=== PATIENT | female | born 1975 | race Caucasian/White ===

== ENCOUNTER → 2016-07-11 | Outpatient (CLI) | payer OTHER | LOC: FIMAGING 13:49 | PROVIDERS: ATTEND Neurological Surgery | DX: G44.51 Hemicrania continua (principal); M99.71 Connective tissue and disc stenosis of intervertebral foramina of cervical region; M50.322 Other cervical disc degeneration at C5-C6 level ==

== ENCOUNTER → 2016-07-20 | Day surgery (SDC) | payer OTHER ==
[~2016-07-20] MED LIST: BUPIVACAINE 0.5% 30 ML SDV ONE; DEPO METHYLPREDNISOLONE 80 MG/ML SDV ONE; LIDOCAINE 1% 30 ML SDV ONE
== END | disposition home or self-care (01) ==
LOC: FIMAGING 13:16
PROVIDERS: ATTEND Radiology Diagnostic Radiology
PROC: 3E0X33Z Introduction of Anti-inflammatory into Cranial Nerves, Percutaneous Approach (ICD-10-PCS; principal; 2016-07-20)
PROC: 3E0X3BZ Introduction of Anesthetic Agent into Cranial Nerves, Percutaneous Approach (ICD-10-PCS; principal; 2016-07-20)
DX: M54.81 Occipital neuralgia (principal)
CPT/HCPCS: J1020

== ENCOUNTER → 2016-07-28 | Outpatient (CLI) | payer OTHER | LOC: FIMAGING 11:06 | DX: Z12.31 Encounter for screening mammogram for malignant neoplasm of breast (principal) | CPT/HCPCS: G0202 ==

== ENCOUNTER 2016-08-17 08:58 | Day surgery (SDC) | payer OTHER ==
[2016-08-17] MEDS ORDERED: ONDANSETRON 4 MG/2 ML VIAL ONE (10:12)
[2016-08-17] MEDS ORDERED: FLUMAZENIL 0.5 MG/5 ML MDV IVP ONE (10:12)
[2016-08-17] MEDS ORDERED: NALOXONE HCL 0.4 MG/ML INJ ONE (10:12)
[2016-08-17] MEDS ORDERED: MIDAZOLAM 2 MG/2 ML VIAL ONE (10:12)
[2016-08-17] MEDS ORDERED: fentaNYL 100 MCG/2 ML INJ ONE (10:14)
[2016-08-17] MEDS ORDERED: BUPIVACAINE 0.5% 30 ML SDV ONE (10:53)
[2016-08-17] MEDS ORDERED: IOPAMIDOL (ISOVUE-M 300) 15 ML VIAL IV ONE (10:54)
[2016-08-17] MEDS ORDERED: DEPO METHYLPREDNISOLONE 80 MG/ML SDV ONE (10:54)
[2016-08-17] MEDS ORDERED: DEPO METHYLPREDNISOLONE 40 MG/ML SDV ONE (10:54)
== END 2016-08-17 11:45 | disposition home or self-care (01) ==
LOC: FIMAGING 08:58
PROVIDERS: ATTEND Radiology Diagnostic Radiology
PROC: B01B1ZZ Fluoroscopy of Spinal Cord using Low Osmolar Contrast (ICD-10-PCS; principal; 2016-08-17 11:00)
PROC: 3E0S3BZ Introduction of Anesthetic Agent into Epidural Space, Percutaneous Approach (ICD-10-PCS; principal; 2016-08-17 11:00)
PROC: 3E0S33Z Introduction of Anti-inflammatory into Epidural Space, Percutaneous Approach (ICD-10-PCS; principal; 2016-08-17 11:00)
DX: M47.892 Other spondylosis, cervical region (principal); G50.0 Trigeminal neuralgia
CPT/HCPCS: J1030; J1040; J2250; J2310; J2405; J3010; Q9967

== ENCOUNTER → 2016-12-08 | Outpatient (CLI) | payer OTHER | LOC: FIMAGING 08:16 | PROVIDERS: ATTEND Student in an Organized Health Care Education/Training Program | DX: O09.521 Supervision of elderly multigravida, first trimester (principal); Z3A.13 13 weeks gestation of pregnancy; O34.11 Maternal care for benign tumor of corpus uteri, first trimester; D25.1 Intramural leiomyoma of uterus; D25.2 Subserosal leiomyoma of uterus ==

== ENCOUNTER → 2017-01-24 | Outpatient (CLI) | payer OTHER | LOC: FIMAGING 10:33 | PROVIDERS: ATTEND Student in an Organized Health Care Education/Training Program | DX: O09.512 Supervision of elderly primigravida, second trimester (principal); O09.812 Supervision of pregnancy resulting from assisted reproductive technology, second trimester; D25.9 Leiomyoma of uterus, unspecified; Z3A.19 19 weeks gestation of pregnancy ==

== ENCOUNTER → 2017-02-28 | Outpatient (CLI) | payer OTHER | LOC: FIMAGING 09:25 | PROVIDERS: ATTEND Student in an Organized Health Care Education/Training Program | DX: O09.512 Supervision of elderly primigravida, second trimester (principal); O09.812 Supervision of pregnancy resulting from assisted reproductive technology, second trimester; O34.12 Maternal care for benign tumor of corpus uteri, second trimester; Z3A.24 24 weeks gestation of pregnancy ==

== ENCOUNTER → 2017-04-11 | Outpatient (CLI) | payer OTHER | LOC: FIMAGING 08:25 | PROVIDERS: ATTEND Student in an Organized Health Care Education/Training Program | DX: O09.523 Supervision of elderly multigravida, third trimester (principal); O09.813 Supervision of pregnancy resulting from assisted reproductive technology, third trimester; O34.13 Maternal care for benign tumor of corpus uteri, third trimester; O99.283 Endocrine, nutritional and metabolic diseases complicating pregnancy, third trimester; O99.619 Diseases of the digestive system complicating pregnancy, unspecified trimester; E03.9 Hypothyroidism, unspecified; K21.9 Gastro-esophageal reflux disease without esophagitis; Z3A.30 30 weeks gestation of pregnancy ==

== ENCOUNTER → 2017-05-25 | Outpatient (CLI) | payer OTHER | LOC: FIMAGING 12:14 | PROVIDERS: ATTEND Student in an Organized Health Care Education/Training Program | DX: O09.523 Supervision of elderly multigravida, third trimester (principal); O09.813 Supervision of pregnancy resulting from assisted reproductive technology, third trimester; O34.13 Maternal care for benign tumor of corpus uteri, third trimester; Z3A.36 36 weeks gestation of pregnancy ==

== ENCOUNTER 2017-06-09 21:57 | Inpatient (IN) | payer OTHER ==
[2017-06-09] MEDS ORDERED: MAGNESIUM SULF 4 GM/WATER 100 ML IV ONE (22:35)
[2017-06-09] MEDS ORDERED: CALCIUM GLUC 10% 1 GM/10 ML VIAL IVP PRN (22:35)
[2017-06-09] MEDS ORDERED: ONDANSETRON 4 MG/2 ML VIAL IVP PRN (22:37)
[2017-06-09 22:48] LABS: PLATELET COUNT 339 10^3/uL (150-400)
[2017-06-09] MEDS: MAGNESIUM SULFATE 20 GM in D5W 500 ML IV SCH (23:47)
--- NOTE | 2017-06-09 23:53 | GHP ---
[f rep st] PREOP HISTORY AND PHYSICAL DATE OF ADMISSION: 06/09/2017 ADMITTING DIAGNOSIS: preeclampsia. HISTORY OF PRESENT ILLNESS: The patient is a 42-year-old, 2, para 1-0-1-1, who is 6 days sta tus post low transverse section at 37-5/7 weeks' gestation secondary to gestational hyperten amanda, who is admitted today for elevated blood pressures, evaluation for preeclampsia. The patient r eports feeling relatively well today. Denies headache, scotomata, blurred vision. Has had epigastri c pain and gastritis symptoms, but no other significant symptoms. She took her blood pressure at [facility] and had a value of 168/102. She presented to Labor and Delivery for evaluation and her serial bloo d pressures were elevated 159-195/84-108, 195/108, 181/102, 174/104, and she is admitted for postpart um preeclampsia. She had her section at 37-5/7 weeks' gestation due to elevated blood press ures. She had no evidence of HELLP syndrome and her blood pressures were stable. She was discharged home from [facility] in [place] without any blood pressure medications and told to follow up p.r.n. She has not had a history of preeclampsia. PAST OBSTETRICAL HISTORY: In 2017 she had early SAB and this is her second . Baby was born on 06/03/2017, 6 pounds 12 ounces, scheduled section secondary to history of uterine fibroi ds and the above-mentioned gestational hypertension. PAST GYNECOLOGICAL HISTORY: Patient has no significant past gynecological history. She had a normal menstrual triad, a history of infertility and infertility treatments. No history of abnormal Paps o r STDs. PAST MEDICAL HISTORY: Significant for hypothyroidism, history of depression and history trigeminal n euralgia. . PAST SURGICAL HISTORY: Diagnostic laparoscopy for endometriosis, nasal septoplasty, foot surgery, an d microvascular decompression craniotomy for trigeminal neuralgia, and the above mentioned . ALLERGIES: She has no known drug allergies. She is allergic to latex powder and gloves. MEDICATION: Current meds include levothyroxine 135 mcg daily, Pepcid 20 mg daily. SOCIAL HISTORY: She is single, in a monogamous relationship. 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 She denies tobacco, alcohol, and drug use. FAMILY HISTORY: Significant for father with prostate cancer. Grandmother of colon cancer, and that is all. REVIEW OF SYSTEMS: Negative except for what was mentioned in History of Present Illness as above. OBJECTIVE: VITAL SIGNS: Today, elevated blood pressures as mentioned, 181/102. Heart rate is 74. She is afebrile. GENERAL: She is a well-developed, well-nourished, white female in no acute distres s. LUNGS: Clear to auscultation bilaterally. HEART: Regular rate and rhythm. No murmurs. ABDOME N: Soft, nontender. Normal bowel sounds. Incision is clean, dry, and intact. Uterine fundus firm. Umbilicus -3. She has trace edema. DTRs are 2+, 2+. She has no clonus. LABS: Pending. Currently, her white count is 8.2, hemoglobin is 12.2, hematocrit 34.2, and platele ts are 339. Chemistry is pending. LABORATORY DATA: Urinalysis was negative for protein. P:C ratio Is pending. ASSESSMENT/PLAN: 42-year-old 2, para 1-0-11 who is 6 days status post spontaneous vaginal de livery, admitted for elevated blood pressures, evaluate for preeclampsia. The patient the n has PIH labs pending and urinalysis. We will start magnesium for seizure prophylaxis an d provide support and antihypertensives as needed. /[id number]/MODL
[2017-06-10] MEDS ORDERED: IBUPROFEN 600 MG TAB PO ONE (03:44)
[2017-06-10] MEDS: IBUPROFEN 600 MG TAB PO PRN ×4 (04:00→22:18)
--- NOTE | 2017-06-10 06:53 | OBPP ---
Progress Note Assessment/Plan: Assessment: 42 y/o POD #7 s/p LTCS secondary to Gestational HTN now admitted for PP MgSo4 Plan: Labs stable and BP improved now stable on MgSo4. We will consult Dr. Bocanegra today as to plan of duration of MgSo4. 06/10/17 06:53 Subjective/ Course: 06/10/17 06:50 Pt is resting comfortably on MgSo4. She continues to deny GRAF, scotomata, or RUQ pain. Objective: 06/09/17 22:35 06/09/17 22:35 Uric Acid 7.0 mg/dL (2.5-6.8) H 06/09/17 22:35 Total Bilirubin 0.4 mg/dL (0.1-1.4) 06/09/17 22:35 Conjugated Bilirubin 0.2 mg/dL (0.0-0.5) 06/09/17 22:35 Unconjugated Bilirubin 0.2 mg/dL (0.0-1.1) 06/09/17 22:35 AST 30 IU/L (14-46) 06/09/17 22:35 ALT 39 IU/L (9-52) 06/09/17 22:35 Lactate Dehydrogenase 776 IU/L (313-618) H 06/09/17 22:35 BP 134/73, 148/68, 137/76, 155/67, 126/63 Uterine Position/Fundal Height: Umbilicus -2 Uterine Tone: Firm Physical Exam - Physical Exam Neck: non-tender, full range of motion, supple Respiratory: chest non-tender, lungs clear, normal breath sounds Cardiac/Chest: regular rate, rhythm Abdomen: incision (c/d/i) Extremities: swelling (tr), Guillermo's sign (neg)
[2017-06-10] MEDS: MAGNESIUM SULFATE 20 GM in D5W 500 ML IV SCH (11:32)
[2017-06-10] MEDS: ACETAMINOPHEN 325 MG TAB PO PRN ×3 (12:06→20:59)
--- NOTE | 2017-06-10 13:37 | OBPP ---
Progress Note Assessment/Plan: Assessment: POD7 s/p PLTCS at 37wks for GHTN, admitted last night with severe range BP's with PP preeclampsia. PP magnesium started around midnight. Has not recieved any Antihypertensives thus far - BP's normalized on their own to mild range overnight, but still having severe pressures this AM. No concerning s/sx other than mild GRAF which resolved with Tylenol. Exam unremarkable, not significantly swollen. Labs show mildly elevated Cr and UA, but otherwise WNL. No proteinuria. Plan: Discussed plan of care with AJYLA Hunter. She recommended continuing mag for 24 hrs and starting Procardia 30XL. Will give first dose of medication now and monitor BP - if she spikes around 12 hrs after this first dose may need BID dosing. Will repeat labs in the AM to trend. Mag can come off at midnight if our pressures have looked better. If BP well controlled and labs not worsening can likely dc home in the AM. Subjective/ Course: 06/10/17 06:50 Pt is resting comfortably on MgSo4. She continues to deny GRAF, scotomata, or RUQ pain. 06/10/17 13:40 Tyra continues to feel pretty good. A little dizzy, had a mild GRAF this AM that resolved with Tylenol and a little caffeine. going alright, reports that she continues to void large volumes - 1400cc when she went in the middle of the night, and 700cc/void here this AM. Denies any other new or evolving s/s/sx of preeclampsia. Objective: 06/09/17 22:35 06/09/17 22:35 Uric Acid 7.0 mg/dL (2.5-6.8) H 06/09/17 22:35 Total Bilirubin 0.4 mg/dL (0.1-1.4) 06/09/17 22:35 Conjugated Bilirubin 0.2 mg/dL (0.0-0.5) 06/09/17 22:35 Unconjugated Bilirubin 0.2 mg/dL (0.0-1.1) 06/09/17 22:35 AST 30 IU/L (14-46) 06/09/17 22:35 ALT 39 IU/L (9-52) 06/09/17 22:35 Lactate Dehydrogenase 776 IU/L (313-618) H 06/09/17 22:35 BPs: 130-150s/80-90s overnight. Did have one isolated pressure of 175/87 here this AM. Physical Exam - Physical Exam General Appearance: WD/WN, alert, no apparent distress Extremities: non-tender, swelling (+1 pedal/LE, no pitting), Guillermo's sign ( Negative) Skin: normal color, warm/dry
[2017-06-10] MEDS ORDERED: NIFEdipine ER 30 MG TAB PO SCH (13:45)
[2017-06-10] MEDS: DOCUSATE SODIUM 100 MG CAP PO SCH ×2 (13:57→22:18)
[2017-06-11] MEDS ORDERED: HYDROCODONE/APAP 5/325 TAB ONE (00:12)
[2017-06-11] MEDS ORDERED: HYDROCODONE/APAP 5/325 TAB PO PRN (00:20)
[2017-06-11] MEDS: IBUPROFEN 600 MG TAB PO PRN ×2 (04:28→10:50)
[2017-06-11] MEDS: ACETAMINOPHEN 325 MG TAB PO PRN ×2 (08:00→12:04)
[2017-06-11 10:22] LABS: PLATELET COUNT 422 10^3/uL (150-400)
[2017-06-11] MEDS: DOCUSATE SODIUM 100 MG CAP PO SCH (10:51)
--- NOTE | 2017-06-11 11:48 | OBPP ---
Progress Note Assessment/Plan: Assessment: 42 y/o POD #8 s/p LTCS secondary to Gestational HTN now admitted for PP pre eclampsia. Plan: I consulted with Dr. Mike Bocanegra [facility] today regarding Tyra's current BP and labs values. We feel Nifedepine may be contributing to her GRAF and may now create hypotension. She suggested trying Labetalol 100 mg BID and observing BP and symptoms for a few hours. If she feels well and BP remain controlled will d /c home today with Labetalol 100 mg BID. 06/10/17 06:53 06/11/17 11:48 Subjective/ Course: 06/10/17 06:50 Pt is resting comfortably on MgSo4. She continues to deny GRAF, scotomata, or RUQ pain. 06/10/17 13:40 Tyra continues to feel pretty good. A little dizzy, had a mild GRAF this AM that resolved with Tylenol and a little caffeine. going alright, reports that she continues to void large volumes - 1400cc when she went in the middle of the night, and 700cc/void here this AM. Denies any other new or evolving s/s/sx of preeclampsia. 06/11/17 11:45 Pt is feeling better late morning after rest. She had a "horrible" GRAF last night and early am and needed 1/2 Suches, Ibuprofen and Tylenol. She continues to have episodes of dizziness and her BP are better controlled but may now be in the hypotensive range for her. She continues to work on nursing and pumping and baby is doing well. Her milk volumes have improved. Objective: 06/11/17 10:05 06/11/17 10:05 Uric Acid 6.3 mg/dL (2.5-6.8) 06/11/17 10:05 Total Bilirubin 0.4 mg/dL (0.1-1.4) 06/11/17 10:05 Conjugated Bilirubin 0.2 mg/dL (0.0-0.5) 06/11/17 10:05 Unconjugated Bilirubin 0.2 mg/dL (0.0-1.1) 06/11/17 10:05 AST 25 IU/L (14-46) 06/11/17 10:05 ALT 37 IU/L (9-52) 02/04/18 10:05 Lactate Dehydrogenase 826 IU/L (313-618) H 06/11/17 10:05 Temp Pulse Resp BP Pulse Ox 144/94 H 06/10/17 13:57 BP ranges 130-110/ 60- 80's Physical Exam - Physical Exam General Appearance: alert, no apparent distress Neck: non-tender, full range of motion, supple Respiratory: chest non-tender, lungs clear, normal breath sounds Cardiac/Chest: regular rate, rhythm Abdomen: normal bowel sounds, incision (c/d/io) Extremities: swelling (no), Guillermo's sign (neg)
[2017-06-11] MEDS ORDERED: LABETALOL HCL 100 MG TAB ONE (11:58)
[2017-06-11 12:04] VITALS: BP 139/89; PULSE 80
[2017-06-11] MEDS ORDERED: LABETALOL HCL 100 MG TAB PO SCH (21:00)
== END 2017-06-11 14:00 | disposition home or self-care (01) | DRG 776 ==
LOC: FLD 21:57 → OBSVTOIN 21:57 → INTOOBSV 21:57 → EEVIPCON 21:57 → OBSVTOIN 06-10 14:32
PROVIDERS: ADMIT Obstetrics & Gynecology; ATTEND Obstetrics & Gynecology
DX: O14.05 Mild to moderate pre-eclampsia, complicating the puerperium (principal); E03.9 Hypothyroidism, unspecified
CPT/HCPCS: J0610; J2405; J3475